=== PATIENT | female | born 1970 | race Caucasian/White ===

== ENCOUNTER 2016-08-09 18:47 | Emergency (ER) | payer OTHER ==
[~2016-08-09] VITALS: Wt 76.2 kg
[~2016-08-09 18:47] MED LIST: CIPROFLOXACIN500 MG PO; KEFLEX500 MG PO; MOTRIN800 MG PO; PYRIDIUM100 MG PO; TYLENOL ES500 MG PO; VICODIN 5/500 505 MG PO; VICODIN 500 MG-1 TAB PO
[2016-08-09] MEDS ORDERED: ZOFRAN4 MG PO (18:57)
[2016-08-09] MEDS ORDERED: DOXYCYCLINE100 M3 PO (18:57)
== END 2016-08-09 19:02 | disposition home or self-care (01) ==
LOC: ED 18:47
DX: S80.862A Insect bite (nonvenomous), left lower leg, initial encounter (principal); R21 Rash and other nonspecific skin eruption; R03.0 Elevated blood-pressure reading, without diagnosis of hypertension; F17.200 Nicotine dependence, unspecified, uncomplicated; Z98.51 Tubal ligation status; Z88.6 Allergy status to analgesic agent; W57.XXXA Bitten or stung by nonvenomous insect and other nonvenomous arthropods, initial encounter; Y93.89 Activity, other specified; Y92.89 Other specified places as the place of occurrence of the external cause; Y99.9 Unspecified external cause status

== ENCOUNTER 2016-12-22 20:00 | Emergency (ER) | payer OTHER ==
[~2016-12-22] VITALS: Ht 160 cm; Wt 83.0 kg
[~2016-12-22 20:00] MED LIST changes: +DOXYCYCLINE100 M3 PO; +ZOFRAN4 MG PO
[2016-12-22] MEDS ORDERED: PREDNISONE50 MG PO (22:32)
[2016-12-22] MEDS ORDERED: NAPROSYN500 MG PO (22:32)
[2016-12-22] MEDS ORDERED: VALIUM10 MG PO (22:32)
== END 2016-12-22 22:41 | disposition home or self-care (01) ==
LOC: ED 20:00
DX: M54.5 Low back pain (principal); Z88.6 Allergy status to analgesic agent; V89.2XXA Person injured in unspecified motor-vehicle accident, traffic, initial encounter; Y93.89 Activity, other specified; Y92.413 State road as the place of occurrence of the external cause; Y99.9 Unspecified external cause status

== ENCOUNTER 2017-11-23 15:15 | Emergency (ER) | payer OTHER ==
[~2017-11-23] VITALS: Ht 160 cm; Wt 77.1 kg
[~2017-11-23 15:15] MED LIST changes: +NAPROSYN500 MG PO; +PREDNISONE50 MG PO; +VALIUM10 MG PO
[2017-11-23] MEDS ORDERED: CLINDAMYCIN HC300 MG PO (15:53)
[2017-11-23] MEDS ORDERED: NAPROSYN500 MG PO (15:53)
== END 2017-11-23 15:57 | disposition home or self-care (01) ==
LOC: ED 15:15
DX: K02.9 Dental caries, unspecified (principal); F17.200 Nicotine dependence, unspecified, uncomplicated; Z88.6 Allergy status to analgesic agent

== ENCOUNTER 2020-01-06 22:49 | Emergency (ER) | payer OTHER ==
[~2020-01-06] VITALS: Ht 160 cm; Wt 80.7 kg
[~2020-01-06 22:49] MED LIST changes: +CLINDAMYCIN HC300 MG PO
== END 2020-01-07 01:22 | disposition home or self-care (01) ==
LOC: ED 22:49
DX: S96.911A Strain of unspecified muscle and tendon at ankle and foot level, right foot, initial encounter (principal); S90.31XA Contusion of right foot, initial encounter; Z88.5 Allergy status to narcotic agent; Z79.899 Other long term (current) drug therapy; X58.XXXA Exposure to other specified factors, initial encounter; Y93.89 Activity, other specified; Y92.89 Other specified places as the place of occurrence of the external cause; Y99.8 Other external cause status

== ENCOUNTER 2024-12-31 13:09 | Emergency (ER) | payer MEDICAID ==
[~2024-12-31] VITALS: Ht 160 cm; Wt 50.8 kg
[2024-12-31] MEDS ORDERED: Amoxicillin/Clavulanate Pota 875 MG TAB PO ONE (13:25)
[2024-12-31] MEDS ORDERED: AMOX-CLAV 875-1 EACH PO (13:27)
[2024-12-31] MEDS ORDERED: IBU800 M2 PO (13:31)
== END 2024-12-31 13:45 | disposition home or self-care (01) ==
LOC: ED 13:09
DX: H66.92 Otitis media, unspecified, left ear (principal); J02.9 Acute pharyngitis, unspecified; I10 Essential (primary) hypertension; E78.5 Hyperlipidemia, unspecified; F17.290 Nicotine dependence, other tobacco product, uncomplicated; Z88.6 Allergy status to analgesic agent; Z79.899 Other long term (current) drug therapy